=== PATIENT | male | born 1985 | race Caucasian/White ===

== ENCOUNTER 2018-08-05 09:38 | Emergency (ER) | payer OTHER ==
[2018-08-05] MEDS ORDERED: KETOROLAC 60 MG/2 ML VIAL (J1885) IM (10:15)
== END 2018-08-05 10:25 | disposition home or self-care (01) ==
LOC: M ED 09:38
DX: S16.1XXA Strain of muscle, fascia and tendon at neck level, initial encounter (principal); X58.XXXA Exposure to other specified factors, initial encounter; Y92.89 Other specified places as the place of occurrence of the external cause
CPT/HCPCS: 96372